=== PATIENT | male | born 1980 | race Caucasian/White ===

== ENCOUNTER 2025-06-03 08:43 | Emergency (ER) | payer OTHER, SELFPAY ==
[2025-06-03 08:53] VITALS: BP 111/59; PULSE 55; RESP 16; TEMP 36.8; O2SAT 99; BMI 35.6
--- NOTE | 2025-06-03 09:02 | DI.RAD.S_ITS ---
PROCEDURE: XR HAND LT MIN 3V INDICATIONS: dog bite TECHNIQUE: 3 views of the hand(s) acquired. COMPARISON: None. FINDINGS: Bones: No acute fractures or dislocations. Healed fracture deformity of the small finger metacarpal. Carpal bones are normally aligned. No suspicious bony lesions. Soft tissues: No radiopaque retained foreign body. Soft tissue swelling along the dorsal hand in the index-long finger intermetacarpal space. Vascular calcifications. IMPRESSION: No acute osseous abnormality. Soft tissue swelling and small gas foci along the dorsal hand, without radiopaque retained foreign body, correlate with penetrating trauma. Dictated by: Brandan David M.D. on 06/03/2025 at 9:21 Approved by: Brandan David M.D. on 06/03/2025 at 9:22
--- NOTE | 2025-06-03 09:30 | ED.ANIMALBIT ---
HPI - Animal Bite General Chief Complaint: Animal Bite Stated Complaint: left hand injury Time Seen by Provider: 06/03/25 09:01 Source: patient Mode of arrival: Ambulatory History of Present Illness HPI narrative: 44-year-old right-hand dominant presents with dog bite to left hand 20 minutes prior to arrival. Related Data Previous Rx's ?Medication ?Instructions ?Recorded amoxicillin 875 mg-potassium 1 tab PO BID Dog bite #13 tabs 06/03/25 clavulanate 125 mg tablet Allergies Allergy/AdvReac Type Severity Reaction Status Date / Time No Known Drug Allergies Allergy Verified 06/03/25 08:54 Patient History Social History Smoking Status: Current some day smoker Smoking Status: Current some day smoker Exam Initial Vital Signs Initial Vital Signs: Vital Signs Temperature 98.2 F 06/03/25 08:53 Pulse Rate 55 L 06/03/25 08:53 Respiratory Rate 16 06/03/25 08:53 Blood Pressure 111/59 L 06/03/25 08:53 Pulse Oximetry 99 06/03/25 08:53 Oxygen Delivery Method Room Air 06/03/25 08:53 Course Orders Ordered: ED Orders 06/03/25 09:02 XR hand LT min 3V Stat Discontinued Medications Amoxicillin/Clavulanate Potassium (Amoxicillin/Clav 875/125 Mg) 1 tab PO NOW ONE Stop: 06/03/25 09:03 Vital Signs Vital signs: Vital Signs - 8 hr 06/03/25 08:53 Temperature 98.2 F Pulse Rate 55 L Respiratory Rate 16 Blood Pressure 111/59 L Pulse Oximetry 99 Oxygen Delivery Method Room Air Discharge Plan Departure Patient Disposition: Home Clinical Impression: Bite by animal Instructions: DI for Dog Bite Activity Restrictions/Additional Instructions: Activity as tolerated. Keep your wound clean and dry. Dress the open puncture wounds with clean dressing. Prescriptions: New amoxicillin-pot clavulanate 875-125 mg tablet 1 tab PO BID Qty: 13 0RF Rx Instructions: Take as prescribed and until all pills are gone. Referrals: Sandeep Smith MD [Primary Care Provider, Medical] Stand Alone Forms: Patient Portal/API
[2025-06-03] MEDS: AMOXICILLIN/CLAV 875/125 MG 1 TAB PO (09:37)
== END 2025-06-03 09:43 | disposition home or self-care (01) ==
PROVIDERS: Emergency Provider Student in an Organized Health Care Education/Training Program; PCP Internal Medicine
DX: S61.452A Open bite of left hand, initial encounter (principal); W54.0XXA Bitten by dog, initial encounter
CPT/HCPCS: 73130; 99283